=== PATIENT | male | born 1950 | race Caucasian/White ===

== ENCOUNTER 2023-12-20 10:05 | Outpatient (AMB) | payer MEDICARE, SELFPAY ==
[2023-12-20 10:08] VITALS: BP 138/74; PULSE 83; BMI 25.5
--- NOTE | 2023-12-20 10:08 | MHC.OFFVIS ---
Vital Signs 12/20/23 10:08 Height 6 ft 1 in Weight 193 lb 1.999 oz BMI 25.5 BP 138/74 Blood Pressure Location Lt brachial Position Sitting Pulse 83 Intake Visit Reasons: Gastroesophageal reflux disease (GERD) Intake Note: New patient in office today for evaluation and management of GERD. CC: Patient states onset of acid reflux and heartburn months ago . He is currently taking Omeprazole 20 mg BID and this medications helps with symptoms. Last colonoscopy about 15 years ago at [facility] per Pt. Report Checker Required: No Accompanied by: Self / Same As Patient Allergies No Known Drug Allergies Allergy (Severe, Verified 12/20/23 10:13) none HPI HPI Gastroesophageal reflux disease (GERD): Details: 73-year-old male here for initial evaluation of GERD. [facility] by [facility]. 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 [facility]UM SWALLOW [facility] RELATIVELY NORMAL EXCEPT FOR GERD TODAY'S VISIT He started having CP a few months ago in the evening, and this resolved the pain. He was very concerned that his prior pneumothorax was acting up again. He tells me he is status post thoracotomy of the right lower lobe. I do not think an EGD is warranted. This would not serve him because the risk versus benefit to him is not fruitful migdalia with his comorbid respiratory problems. He denies any abdominal pain, dyspepsia, dysphagia, or ongoing heartburn. He served in the [email or web address] on the [employer]! Will get labs to see if any reason to suspect GB, and HP stool. Continue omeprazole at his current dose as it is successfully resolving his symptoms. He had a relatively normal barium swallow at [facility] with no sign of a severe hiatal hernia etc.. ROV ROV 4 weeks. [facility] Medical History (Updated 12/20/23 @ 16:31 by VERN Carcamo) History of pyloric stenosis History of pneumothorax Surgical History H/O hernia repair H/O colonoscopy S/P pneumonectomy Family History Father Cancer Brother Hodgkin lymphoma Social History Patient Tobacco Use Status: Former Tobacco user Quit Date: 11/2022 Tobacco use type: Cigarette Substance Use Type: Marijuana Review of Systems Const Denies fatigue, Denies fever(s), Denies night sweats, Denies poor appetite and Denies weight loss ENT Reports Normal hearing present, Denies dysphagia, Denies odynophagia, Denies throat swelling and Denies tongue swelling Card Reports no additional complaints Resp Reports no additional complaints GI Details: Denies abdominal pain, Denies melena, Denies bloating, Denies hematochezia, Denies constipation, Denies GI cramping, Denies dysphagia, Denies excessive flatus, Denies early satiety, Reports heartburn, Denies diarrhea, Denies nausea, Denies odynophagia, Denies vomiting and Denies hematemesis Skin/Breast Denies pruritus, Denies lesions, Denies rash and Denies jaundice Neuro Reports Normal hearing present and Denies Abnormal speech present Endo Denies fatigue Aller/Immun Denies throat swelling and Denies tongue swelling Physical Exam Vital Signs: Last Vital Signs Pulse 83 12/20/23 10:08 BP 138/74 12/20/23 10:08 BMI result Body Mass Index 25.5 Const General: cooperative, no acute distress, well developed and well groomed Nutritional Appearance: average body habitus and well nourished Orientation/consciousness: oriented to person, oriented to place and oriented to time Limitations: No language barrier HEENT Head: Yes normocephalic and Yes atraumatic Eyes General: appearance normal, both eyes and all related structures Pupils: Equal, round and reactive pupils present Neck Neck: Yes normal visual inspection and Yes no lymphadenopathy Thyroid: Thyroid normal Resp Effort & Inspection: normal respiratory effort and able to speak in complete sentences Auscultation: clear to auscultation bilaterally Cardio Rate: regular rate Rhythm: regular rhythm Heart sounds: Normal, physiologic split S2 sound present Peripheral pulses: radial pulses present and posterior tibial pulses present GI Inspection: No distended and No Abdominal panniculus present Palpation (GI): Soft to palpation, nontender, no guarding, not rigid and No hepatosplenomegaly present Percussion: Yes normal to percussion Auscultation: normal bowel sounds Rectal Exam - Male: Yes deferred Abdomen image: 1. pyloric stenosis Skin General skin exam: no rashes or lesions noted, turgor normal, skin not dry, no jaundice, No spider nevi and no striae Rashes: no rashes Nails: normal Neuro General: oriented to person, oriented to place and oriented to time Cranial nerves: Yes Equal, round and reactive pupils present and Yes Normal hearing present Speech: No Abnormal speech present Extrem General: Yes normal to inspection, No clubbing, No cyanosis and No edema Psych Appearance: grossly normal and well kempt Mental Status: mental status grossly normal Speech and movement: Normal speech and movement present Affect: normal affect Attitude: cooperative Thought process: Normal thought process present and not confabulating Thought content: Normal thought content present Insight: Fair insight present (Psych) Judgement: Fair judgement present (Psych) Assessment & Plan Assessment & Plan (1) GERD (gastroesophageal reflux disease): Code(s): K21.9 - Gastro-esophageal reflux disease without esophagitis Category: Medical Plan He started having CP a few months ago in the evening, and this resolved the pain. He was very concerned that his prior pneumothorax was acting up again. He tells me he is status post thoracotomy of the right lower lobe. I do not think an EGD is warranted. This would not serve him because the risk versus benefit to him is not fruitful migdalia with his comorbid respiratory problems. He denies any abdominal pain, dyspepsia, dysphagia, or ongoing heartburn. He served in the [employer] on [employer]! Will get labs to see if any reason to suspect GB, and HP stool. Continue omeprazole at his current dose as it is successfully resolving his symptoms. He had a relatively normal barium swallow at [facility] with no sign of a severe hiatal hernia etc.. ROV ROV 4 weeks. Orders: Orders Comprehensive Met. Panel Today K21.9 - Gastro-esophageal reflux disease without esophagitis H pylori Ag Stool Today K21.9 - Gastro-esophageal reflux disease without esophagitis Complete Blood Count Auto Diff Today K21.9 - Gastro-esophageal reflux disease without esophagitis Coding Level of Care Code New Pt Level 3 (17373) Diagnoses GERD (gastroesophageal reflux disease) K21.9
== END 2023-12-20 10:56 | disposition home or self-care (01) ==
PROVIDERS: Visit Provider Nurse Practitioner
DX: K21.9 Gastro-esophageal reflux disease without esophagitis (principal)
CPT/HCPCS: 99203

== ENCOUNTER 2023-12-20 10:05 | Outpatient (REF) | payer MEDICARE, SELFPAY ==
[2023-12-20 11:18] LABS: MANUAL DIFF FLAG NO
[2023-12-20 11:56] LABS: Basophils Absolute Auto 0.1 X10*3/uL (0.0-0.2); Basophils Percent Auto 0.6 % (0-2); Eosinophils Absolute Auto 0.4 X10*3/uL (0.0-0.4); Eosinophils Percent Auto 4.4 % (0-4); Hematocrit 48.6 % (42.0-52.0); Hemoglobin 16.4 g/dl (14.0-18.0); Imm Gran Abs Auto 0.02 X10*3/uL (0.00-0.03); Imm Gran Pct Auto 0.2 % (0.0-0.4); Lymphocytes Absolute Auto 1.8 X10*3/uL (1.2-4.9); Lymphocytes Percent Auto 21.4 % (20-40); Mean Corpuscular HGB Conc 33.7 g/dl (31.0-36.0); Mean Corpuscular Hemoglobin 31.1 pg (27.0-33.0); Mean Platelet Volume 10.1 fL (9.4-12.4); Monocytes Absolute Auto 0.9 X10*3/uL (0.1-1.2); Monocytes Percent Auto 11.5 % (2-11); Neutrophils Absolute Auto 5.1 x10*3/uL (2.0-8.3); Neutrophils Percent Auto 61.9 % (45-73); Platelet Count 252 X10*3/uL (160-400); Red Blood Count 5.28 X10*6/uL (4.60-5.80); Red Cell Distribution Width 13.2 % (11.0-16.0); White Blood Count 8.2 X10*3/uL (4.8-10.8)
[2023-12-20 12:39] LABS: Alanine Aminotransferase 22 U/L (0-40); Albumin Level 4.3 g/dL (3.5-5.0); Alkaline Phosphatase 97 U/L (39-117); Anion Gap 13 (12-20); Aspartate Amino Transferase 19 U/L (5-37); Bilirubin Total 0.4 mg/dL (0.0-1.0); Blood Urea Nitrogen 19 mg/dL (9-16); Calcium 9.5 mg/dL (8.4-10.2); Carbon Dioxide 28 mmol/L (22-29); Chloride 106 mmol/L (96-108); Estimated Glomerular Filt Rate > 60; Glucose Random 87 mg/dL (60-115); Potassium 4.8 mmol/L (3.3-5.1); Sodium 142 mmol/L (135-145); Total Protein 7.3 g/dL (6.5-8.0)
== END 2023-12-20 10:06 | disposition home or self-care (01) ==
LOC: HO.LAB 10:05
PROVIDERS: PCP Internal Medicine; Visit Provider Nurse Practitioner
DX: K21.9 Gastro-esophageal reflux disease without esophagitis (principal)
CPT/HCPCS: 36415; 80053; 85025; 99202

== ENCOUNTER 2023-12-22 12:01 | Outpatient (REF) | payer MEDICARE, SELFPAY | END 2023-12-22 12:02 | disposition home or self-care (01) | LOC: HO.LNP 12:01 | PROVIDERS: Visit Provider Nurse Practitioner | DX: K21.9 Gastro-esophageal reflux disease without esophagitis (principal) | CPT/HCPCS: 87338 ==

== ENCOUNTER 2024-03-09 12:45 | Outpatient (AMB) | payer MEDICARE, SELFPAY ==
[2024-03-09 12:50] VITALS: BP 114/61; PULSE 82; BMI 24.8
--- NOTE | 2024-03-09 12:50 | A.OFFVIS_ITS ---
Vital Signs 03/09/24 12:50 Height 6 ft 1 in Weight 187 lb 13.341 oz BMI 24.8 BP 114/61 Blood Pressure Location Lt brachial Position Sitting Pulse 82 Intake Visit Reasons: 4 week follow up r/s 01/16 r/s 02/15 Intake Note: Nhan presents to in office visit today in follow up GERD and lab results. CC: Patient reports that the medication given to him for GERD helps. Denies any new GI concerns today. Image Processing Engineer Required: No Accompanied by: Self / Same As Patient Allergies No Known Drug Allergies Allergy (Severe, Verified 03/09/24 12:56) none HPI HPI 4 week follow up r/s 01/16 r/s 02/15: Details: Assessment & Plan (1) GERD (gastroesophageal reflux disease): Code(s): K21.9 - Gastro-esophageal reflux disease without esophagitis Category: Medical Plan He started having CP a few months ago in the evening, and this resolved the pain. He was very concerned that his prior pneumothorax was acting up again. He tells me he is status post thoracotomy of the right lower lobe. I do not think an EGD is warranted. This would not serve him because the risk versus benefit to him is not fruitful migdalia with his comorbid respiratory problems. He denies any abdominal pain, dyspepsia, dysphagia, or ongoing heartburn. He served in the [employer] on [employer]! Will get labs to see if any reason to suspect GB, and HP stool. Continue omeprazole at his current dose as it is successfully resolving his symptoms. He had a relatively normal barium swallow at [facility] with no sign of a severe hiatal hernia etc.. ROV ROV 4 weeks. Orders: Orders Comprehensive Met. Panel Today K21.9 - Gastro-esophageal reflux disease without esophagitis H pylori Ag Stool Today K21.9 - Gastro-esophageal reflux disease without esophagitis Complete Blood Count Auto Diff Today K21.9 - Gastro-esophageal reflux disease without esophagitis LABS: Laboratory Tests 12/20/23 12/22/23 11:17 10:15 WBC 8.2 Hgb 16.4 Hct 48.6 Plt Count 252 Estimated GFR > 60 Total Bilirubin 0.4 AST 19 ALT 22 Alkaline Phosphatase 97 Stool H. pylori Ag negative TODAY'S VISIT She continues to do well with the qd omeprazole. He is only at 20mg and at times he will buy it OTC and take a second - but he has discovered that he will have CP if he eats too much too close to bedtime. ROV 1 years. [facility] Medical History History of pyloric stenosis History of pneumothorax Surgical History H/O right inguinal hernia repair H/O pyloromyotomy H/O colonoscopy S/P pneumonectomy Family History Father Cancer Brother Hodgkin lymphoma Social History Patient Tobacco Use Status: Former Tobacco user Tobacco use type: Cigarette Substance Use Type: Marijuana Review of Systems Const Denies fatigue, Denies fever(s), Denies night sweats, Denies poor appetite and Denies weight loss ENT Reports Normal hearing present, Denies dental pain, Denies dysphagia, Denies hearing loss, Denies mouth pain, Denies odynophagia, Denies throat swelling, Denies tongue swelling and Reports other (Dentition adequate) Card Reports no additional complaints Resp Reports no additional complaints GI Details: Denies abdominal pain, Denies melena, Denies bloating, Denies hematochezia, Denies constipation, Denies GI cramping, Denies dysphagia, Denies excessive flatus, Denies early satiety, Reports heartburn, Denies diarrhea, Denies nausea, Denies odynophagia, Denies vomiting and Denies hematemesis Skin/Breast Denies pruritus, Denies lesions, Denies rash and Denies jaundice Neuro Reports Normal hearing present and Denies Abnormal speech present Endo Denies fatigue Aller/Immun Denies throat swelling and Denies tongue swelling Physical Exam Vital Signs: Last Vital Signs Pulse 82 03/09/24 12:50 BP 114/61 03/09/24 12:50 BMI result Body Mass Index 24.8 Const General: cooperative, no acute distress, well developed and well groomed Nutritional Appearance: average body habitus and well nourished Orientation/consciousness: oriented to person, oriented to place and oriented to time Limitations: No language barrier HEENT Head: Yes normocephalic and Yes atraumatic Eyes General: appearance normal, both eyes and all related structures Pupils: Equal, round and reactive pupils present Neck Neck: Yes normal visual inspection and Yes no lymphadenopathy Thyroid: Thyroid normal Resp Effort & Inspection: normal respiratory effort and able to speak in complete sentences Auscultation: clear to auscultation bilaterally Cardio Rate: regular rate Rhythm: regular rhythm Heart sounds: Normal, physiologic split S2 sound present Peripheral pulses: radial pulses present and posterior tibial pulses present GI Inspection: No distended and No Abdominal panniculus present Palpation (GI): Soft to palpation, nontender, no guarding, not rigid and No hepatosplenomegaly present Percussion: Yes normal to percussion Auscultation: normal bowel sounds Rectal Exam - Male: Yes deferred Skin General skin exam: no rashes or lesions noted, turgor normal, skin not dry, no jaundice, No spider nevi and no striae Rashes: no rashes Nails: normal Neuro General: oriented to person, oriented to place and oriented to time Cranial nerves: Yes Equal, round and reactive pupils present and Yes Normal hearing present Speech: No Abnormal speech present Extrem General: Yes normal to inspection, No clubbing, No cyanosis and No edema Psych Appearance: grossly normal and well kempt Mental Status: mental status grossly normal Speech and movement: Normal speech and movement present Affect: normal affect Attitude: cooperative Thought process: Normal thought process present and not confabulating Thought content: Normal thought content present Insight: Fair insight present (Psych) Judgement: Fair judgement present (Psych) Assessment & Plan Assessment & Plan (1) GERD (gastroesophageal reflux disease): Code(s): K21.9 - Gastro-esophageal reflux disease without esophagitis Category: Medical Plan She continues to do well with the qd omeprazole. He is only at 20mg and at times he will buy it OTC and take a second - but he has discovered that he will have CP if he eats too much too close to bedtime. ROV 1 years. Medications: New omeprazole 20 mg PO DAILY 30 caps 6RF K21.9 - Gastro-esophageal reflux disease without esophagitis Coding Level of Care Code Est Pt Level 3 (54068) Diagnoses GERD (gastroesophageal reflux disease) K21.9
== END 2024-03-09 13:47 | disposition home or self-care (01) ==
PROVIDERS: PCP Internal Medicine; Visit Provider Nurse Practitioner
DX: K21.9 Gastro-esophageal reflux disease without esophagitis (principal)
CPT/HCPCS: 99213

== ENCOUNTER → 2024-03-09 12:45 | Outpatient (BNVA) | payer MEDICARE, SELFPAY | PROVIDERS: PCP Internal Medicine; Visit Provider Nurse Practitioner | DX: K21.9 Gastro-esophageal reflux disease without esophagitis (principal) | CPT/HCPCS: 99212 ==

== ENCOUNTER 2025-03-05 08:42 | Outpatient (AMB) | payer MEDICARE, SELFPAY ==
--- OUTSIDE RECORDS SUMMARY | 2025-03-05 08:58 | XMS_ITS | Encounter Summary ---
Author Organization [facility] Address [address] [place] [address] Care Team Providers Care Biomedical Engineer Name Role Phone Unavailable Primary Care Provider Unavailabl e Encounter Details Date Type Department Care Team (Late st Contact Info) Description 08/03/2024 Lab Requisition [facility] - Main Lab [address] [facility] [place] [address] Marquise Boyer MD [address] [facility] [address] [place] [address] Spermatocele of epididymis, unspecified Social History Tobacco Use Types Packs/Day Years Used Date Smoking Tobacco: Never Assessed Sex and Gender Information Value Date Recorded Sex Assigned at Not on file Legal Sex Male 12:26 PM EST Gender Identity Not on file Sexual Orientation Not on file documented as of this encounter Plan of Treatment Not on file documented as of this encounter Procedures Procedure Name Priority Date/Time Associated Diagnosis Comments TISSUE EXAM Routine 08/02/2024 Spermatocele of epididymis, unspecified documented in this encounter Results * Tissue Exam (08/02/2024) Final Diagnosis Scrotum, right spermatocele: -SPERMATOCELE: 08/07/2024 3:04 PM EST 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) [facility] Gross Description A. Scrotum, right scromatocele: Labeled right spermatocele . Received in formalin is a 5.6 x 5.5 x 3.2 cm kelly-white smooth-walled cyst containing a clear watery fluid. There are no areas of thickening or excrescences. A leasing representative section is submitted in one cassette, one piece. AJIT 08/07/2024 3:04 PM EST [facility] Disclaimer Unless otherwise specified, all tissue is 10% NB formalin fixed and paraffin embedded. 08/07/2024 3:04 PM EST [facility] Tissue Scrotal structure / Unknown 08/02/2024 08/03/2024 12:31 PM EST us Marquise Boyer MD LAB PATHOLOGY ORDERABLES Final Result [facility]) [facility] [address] [place] [address], documented in this encounter Visit Diagnoses Diagnosis Spermatocele of epididymis, unspecified documented in this encounter
--- NOTE | 2025-03-05 09:08 | MHC.OFFVIS ---
Vital Signs 03/05/25 09:12 Height 6 ft 1 in Weight 188 lb BMI 24.8 BP 132/75 Blood Pressure Location Lt brachial Position Sitting Pulse 71 Pulse Oximetry (%) 96 Oxygen Delivery Method Room Air Intake Visit Reasons: 1 year follow up Intake Note: Patient yearly GERD. Patient denies any GI issues. Foster Winder Required: No Accompanied by: Self / Same As Patient Allergies No Known Drug Allergies Allergy (Severe, Verified 03/05/25 09:08) none HPI HPI 1 year follow up: Details: Assessment & Plan (1) GERD (gastroesophageal reflux disease): Code(s): K21.9 - Gastro-esophageal reflux disease without esophagitis Category: Medical Plan She continues to do well with the qd omeprazole. He is only at 20mg and at times he will buy it OTC and take a second - but he has discovered that he will have CP if he eats too much too close to bedtime. ROV 1 years. Medications: New omeprazole 20 mg PO DAILY 30 caps 6RF K21.9 - Gastro-esophageal reflux disease without esophagitis TODAY'S VISIT He continues to do well on his omeprazole daily. He has no complaints. He is a who also served in the [employer] on [employer] in the [employer]. We talked quite a bit about my has been who also served in the [employer]. Unfortunately, he tells me his was recently diagnosed with cancer. Return office visit in 1 year [facility] Medical History History of pyloric stenosis History of pneumothorax Surgical History H/O right inguinal hernia repair H/O pyloromyotomy H/O colonoscopy S/P pneumonectomy Family History Father Cancer Brother Hodgkin lymphoma Social History Patient Tobacco Use Status: Former Tobacco user Tobacco use type: Cigarette Substance Use Type: Marijuana Review of Systems Const Denies fatigue, Denies fever(s), Denies night sweats, Denies poor appetite and Denies weight loss ENT Reports Normal hearing present, Denies dental pain, Denies dysphagia, Denies hearing loss, Denies mouth pain, Denies odynophagia, Denies throat swelling, Denies tongue swelling and Reports other (Dentition adequate) Card Reports no additional complaints Resp Reports no additional complaints GI Details: Denies abdominal pain, Denies melena, Denies bloating, Denies hematochezia, Denies constipation, Denies GI cramping, Denies dysphagia, Denies excessive flatus, Denies early satiety, Reports heartburn, Denies diarrhea, Denies nausea, Denies odynophagia, Denies vomiting and Denies hematemesis Skin/Breast Denies pruritus, Denies lesions, Denies rash and Denies jaundice Neuro Reports Normal hearing present and Denies Abnormal speech present Endo Denies fatigue Aller/Immun Denies throat swelling and Denies tongue swelling Physical Exam Vital Signs: Last Vital Signs Pulse 71 03/05/25 09:12 BP 132/75 03/05/25 09:12 Pulse Ox 96 03/05/25 09:12 Oxygen Delivery Method Room Air 03/05/25 09:12 BMI result Body Mass Index 24.8 Const General: cooperative, no acute distress, well developed and well groomed Nutritional Appearance: average body habitus and well nourished Orientation/consciousness: oriented to person, oriented to place and oriented to time Limitations: No language barrier HEENT Head: Yes normocephalic and Yes atraumatic Eyes General: appearance normal, both eyes and all related structures Pupils: Equal, round and reactive pupils present Neck Neck: Yes normal visual inspection and Yes no lymphadenopathy Thyroid: Thyroid normal Resp Effort & Inspection: normal respiratory effort and able to speak in complete sentences Auscultation: clear to auscultation bilaterally Cardio Rate: regular rate Rhythm: regular rhythm Heart sounds: Normal, physiologic split S2 sound present Peripheral pulses: radial pulses present and posterior tibial pulses present GI Inspection: No distended and No Abdominal panniculus present Palpation (GI): Soft to palpation, nontender, no guarding, not rigid and No hepatosplenomegaly present Percussion: Yes normal to percussion Auscultation: normal bowel sounds Rectal Exam - Male: Yes deferred Skin General skin exam: no rashes or lesions noted, turgor normal, skin not dry, no jaundice, No spider nevi and no striae Rashes: no rashes Nails: normal Neuro General: oriented to person, oriented to place and oriented to time Cranial nerves: Yes Equal, round and reactive pupils present and Yes Normal hearing present Speech: No Abnormal speech present Extrem General: Yes normal to inspection, No clubbing, No cyanosis and No edema Psych Appearance: grossly normal and well kempt Mental Status: mental status grossly normal Speech and movement: Normal speech and movement present Affect: normal affect Attitude: cooperative Thought process: Normal thought process present and not confabulating Thought content: Normal thought content present Insight: Good insight present (Psych) Judgement: Good judgement present (Psych) Assessment & Plan Assessment & Plan (1) GERD (gastroesophageal reflux disease): Code(s): K21.9 - Gastro-esophageal reflux disease without esophagitis Category: Medical Plan: He continues to do well on his omeprazole daily. He has no complaints. He is a who also served in the [employer] on [employer] in the [facility]. We talked quite a bit about my has been who also served in the [employer]. Unfortunately, he tells me his was recently diagnosed with cancer. Return office visit in 1 year Medications: Refilled omeprazole 20 mg PO DAILY 30 caps 12RF K21.9 - Gastro-esophageal reflux disease without esophagitis Coding Level of Care Code New Pt Level 3 (43703) Diagnoses GERD (gastroesophageal reflux disease) K21.9
[2025-03-05 09:12] VITALS: BP 132/75; PULSE 71; O2SAT 96; BMI 24.8
== END 2025-03-05 09:42 | disposition home or self-care (01) ==
LOC: HO.HGI 08:43
PROVIDERS: PCP Internal Medicine; Visit Provider Nurse Practitioner
DX: K21.9 Gastro-esophageal reflux disease without esophagitis (principal)
CPT/HCPCS: 99213

== ENCOUNTER → 2025-03-05 08:42 | Outpatient (BNVA) | payer MEDICARE, SELFPAY | PROVIDERS: PCP Internal Medicine; Visit Provider Nurse Practitioner | DX: K21.9 Gastro-esophageal reflux disease without esophagitis (principal) | CPT/HCPCS: 99212 ==